=== PATIENT | female | born 1940 | race Caucasian/White ===

== ENCOUNTER → 2018-12-27 | Outpatient (REF) | payer MEDICARE, BC ==
[~2018-12-27] MED LIST: ADVAIR DISK1 INH; CLARITIN10 MG PO; LEVOTHYROXIN75 MCG PO; NAPROSYN500 MG PO; PROAIR HFA IN; SIMVASTATIN10 MG PO
[2018-12-27 09:54] LABS: ALBUMIN 4.3 g/dL (3.2-5.0); ALKALINE PHOSPHATASE 84 u/l (38-126); ANION GAP 16 (6-22 (CALC)); BILIRUBIN, TOTAL 0.7 mg/dL (0.0-1.4); BUN 15 mg/dL (8-23); BUN/CREATININE RATIO 18 (12-20 (CALC)); CALCULATED LDLCHOLESTEROL 126 mg/dL (62-129 (CALC)); CARBON DIOXIDE 27 mmol/l (22-30); CHLORIDE 98 mmol/l (95-108); CHOLESTEROL HDL RATIO 4.4 (<4.4 (CALC)); CREATININE 0.9 mg/dL (0.5-1.0); GFR 60 ML/MIN (>=60 (CALC)); GFR FOR AFR.AMER. > 60 ML/MIN (>=60 (CALC)); HDL CHOLESTEROL 47 mg/dL (>=40); SGOT/AST 15 u/l (9-36); SODIUM 137 mmol/l (137-146); TOTAL CHOLESTEROL 206 mg/dl (0-199); TOTAL PROTEIN 7.5 g/dL (6.3-8.2); TOTAL TRIGLYCERIDES 168 mg/dl (30-149); VLDL CHOLESTROL 34 mg/dl (0-48 (CALC))
[2018-12-27 10:21] LABS: TSH, 3RD GENERATION 0.97 uIU/mL (0.47 - 4.68)
== END | disposition home or self-care (01) ==
LOC: LAB 08:52
PROVIDERS: ATTEND Internal Medicine
DX: E03.4 Atrophy of thyroid (acquired) (principal); E78.49 Other hyperlipidemia

== ENCOUNTER 2021-09-03 13:57 | Observation (INO) | payer MEDICARE, BC ==
[~2021-09-03] VITALS: Ht 165.1 cm; Wt 73.0 kg
--- NOTE | 2021-09-03 14:00 | NUR ---
PATIENT STATES ASPHASIA AND THUNDER CLAP HEADACHE SUDDEN ONSET LASTING 20 MINUTES LKW 1300. NOTIFIED
--- NOTE | 2021-09-03 14:06 | NUR ---
PT TO CT VIA STRETCHER ACCOMPANIED BY THIS RN IN STABLE CONDITION.
--- NOTE | 2021-09-03 14:13 | NUR ---
CT WITHOUT CONTRAST PERFORMED, PT STABLE
[2021-09-03 14:28] LABS: GFR > 60 ML/MIN (>=60 (CALC)); GFR FOR AFR.AMER. > 60 ML/MIN (>=60 (CALC))
[2021-09-03 14:32] LABS: HEMATOCRIT 42.8 % (37.0-47.0); IMMATURE GRANULOCYTES 0.1 % (0.0-5.0); MEAN CELL VOLUME 98.8 fL CALC (80.0-100.0); MEAN CORPUSCULAR HGB 32.3 pG CALC (26.0-32.0); MEAN CORPUSCULAR HGB CONC 32.7 g/dL CAL (32.0-36.0); NEUT# 3.95 thou/uL (2.00-7.15); RED BLOOD COUNT 4.33 mill/uL (4.20-5.60); RED CELL DISTRI WIDTH 13.2 % (11.5-15.5)
--- NOTE | 2021-09-03 14:37 | NUR ---
PT AMBULATED TO RADIOLOGY BATHROOM, URINE SAMPLE COLLECTED AND TO LAB. PT STEADY ON FEET WITH STANDBY ASSIST.
[2021-09-03 14:41] LABS: INTERNATIONAL NORMALIZED RATIO 0.9 RATIO (0.7-1.3); PROTHROMBIN TIME 9.6 SECONDS (9.0-12.5)
[2021-09-03 14:43] LABS: ALBUMIN 4.4 g/dL (3.2-5.0); ALKALINE PHOSPHATASE 79 u/l (38-126); ANION GAP 15 (6-22 (CALC)); BILIRUBIN, TOTAL 0.8 mg/dL (0.0-1.4); BUN 10 mg/dL (8-23); BUN/CREATININE RATIO 18 (12-20 (CALC)); CARBON DIOXIDE 28 mmol/l (22-30); CHLORIDE 99 mmol/l (95-108); CREATININE 0.6 mg/dL (0.5-1.0); GFR > 60 ML/MIN (>=60 (CALC)); GFR FOR AFR.AMER. > 60 ML/MIN (>=60 (CALC)); SGOT/AST 23 u/l (9-36); SODIUM 137 mmol/l (137-146); TOTAL PROTEIN 8.3 g/dL (6.3-8.2)
[2021-09-03 14:43] LABS: URINE BILIRUBIN - DIPSTICK NEGATIVE (NEGATIVE); URINE BLOOD DIPSTICK TRACE-INTACT (NEGATIVE); URINE COLOR YELLOW; URINE GLUCOSE - DIPSTICK NEGATIVE (NEGATIVE); URINE KETONE NEGATIVE (NEGATIVE); URINE LEUK ESTERASE NEGATIVE (NEGATIVE); URINE PROTEIN - DIPSTICK NEGATIVE (NEG-TRACE); URINE UROBILINOGEN - DIPSTICK 0.2 E.U./dL (0.2)
[2021-09-03 14:49] LABS: URINE NITRITE - DIPSTICK NEGATIVE (Negative)
--- NOTE | 2021-09-03 14:53 | NUR ---
CT WITH CONTRAST PERFORMED
--- NOTE | 2021-09-03 15:05 | NUR ---
PT BACK FROM IMAGING VIA STRETCHER. PT STABLE.
--- NOTE | 2021-09-03 16:05 | NUR ---
PT UP TO BSC WITH STANDBY ASSIST. PT STABLE ON FEET.
--- NOTE | 2021-09-03 17:05 | NUR ---
PT RESTING IN BED WIT AT THE BEDSIDE. PT DENIES ANY PAIN. PT STABLE.
--- NOTE | 2021-09-03 18:03 | NUR ---
[facility] REPORT CALLED TO NAHOMI KENNEY
--- NOTE | 2021-09-03 18:10 | NUR ---
PT TAKEN TO MED/SURG VIA WHEELCHAIR
--- NOTE | 2021-09-03 18:15 | NUR ---
PT ARRIVED VIA WC IN STABLE CONDITION ACCOMPANIED BY ED NURSE. PT STABALIZED AND ORIENTED TO ROOM. ASSISTED PT TO BATHROOM; STEADY GAIT OBSERVED. ASSISTED BACK INTO BED. CALL LIGHT WITHIN REACH.
[2021-09-03 18:20] VITALS: BP 160/70
--- NOTE | 2021-09-03 21:53 | NUR ---
PT MEDICATED ORDERS PROVIDE. DENIES NEED FOR TYLENOL AT THIS TIME, SHE HAD PREVIOUSLY C/O HEADACHE. SHE REFUSED HER ADVAIR STATING THAT SHE TAKES 100/50 NOT THE 250/50. PHARMACY ADVISED THAT WE ONLY CARRY 250/50. PHYSICIAN WILL BE NOTIFIED. PT REPORTS THAT SHE WILL BE FINE WITHOUT IT FOR THE NIGHT/DENIES NEED. SHE REFUSED LOVONOX SHOT ALSO STATING CONCERNS THAT SHE WILL "PROBABLY HAVE A REACTION TO IT." I REASSURED HER THAT IF SHE HAD HESITATIONS OR THOUGHT SHE MAY BE ALLERGIC IN ANY WAY NOT TO TAKE IT. SHE STATED, "I HAVE NEVER TAKEN IT, HOW WOULD I KNOW IF I AM ALLERGIC." SHE DECIDED NOT TO TAKE IT.
--- NOTE | 2021-09-03 22:40 | NUR ---
PT CALLED STATING THAT SHE DISCUSSED THE LOVONOX SHOT WITH HER VIA PHONE CALL AND SHE DECIDED THAT SHE WANTED TO TAKE THE SHOT. I REASSURED HER THAT REACTIONS WERE UNCOMMON, BUT THAT IF SHE DID NOT FEEL COMFORTABLE TAKING SOMETHING THAT SHE HAS THE RIGHT TO REFUSE AND NOT FEEL PRESSURE IN ANY WAY. SHE VERBALIZED UNDERSTANDING AND ASKED TO TAKE IT. SHE ALSO WAS PROVIDED THE PACKAGING PREVIOUSLY SO SHE COULD READ THE INGREDIENTS, ETC. PT MEDICATED WITH LOVONOX SHOT AT THIS TIME, TOLERATED WELL.
--- NOTE | 2021-09-03 22:58 | NUR ---
PT CALLED ASKING IF SHE COULD NOW HAVE HER TYELENOL STATING THAT HER HEADACHE WAS BACK. SHE REPORTS MILD HEADACHE 'BEHIND LEFT EYE WHERE SHE HAD CATERACT REMOVED 4 WEEKS AGO." ADDITIONAL BLANKET PROVIDED, ROOM TURNED WARM, PER REQUEST. DENIES ANY OTHER NEEDS, CALL LIGHT IS W/IN REACH.
[2021-09-04] VITALS: BP 133/68
[2021-09-04 04:30] VITALS: BP 133/66
[2021-09-04 05:21] LABS: HEMATOCRIT 39.9 % (37.0-47.0); HEMOGLOBIN 13.2 g/dl (12.0-16.0); MEAN CELL VOLUME 97.8 fL CALC (80.0-100.0); MEAN CORPUSCULAR HGB 32.4 pG CALC (26.0-32.0); MEAN CORPUSCULAR HGB CONC 33.1 g/dL CAL (32.0-36.0); RED BLOOD COUNT 4.08 mill/uL (4.20-5.60); RED CELL DISTRI WIDTH 13.3 % (11.5-15.5)
[2021-09-04 05:35] LABS: ANION GAP 10 (6-22 (CALC)); BUN 9 mg/dL (8-23); BUN/CREATININE RATIO 14 (12-20 (CALC)); CALCULATED LDLCHOLESTEROL 121 mg/dL (62-129 (CALC)); CARBON DIOXIDE 31 mmol/l (22-30); CHLORIDE 101 mmol/l (95-108); CHOLESTEROL HDL RATIO 3.8 (<4.4 (CALC)); CREATININE 0.6 mg/dL (0.5-1.0); GFR > 60 ML/MIN (>=60 (CALC)); GFR FOR AFR.AMER. > 60 ML/MIN (>=60 (CALC)); HDL CHOLESTEROL 53 mg/dL (>=40); MAGNESIUM 2.2 mg/dL (1.6-2.3); POTASSIUM 4.5 mmol/l (3.5-5.1); SODIUM 137 mmol/l (137-146); TOTAL CHOLESTEROL 199 mg/dl (0-199); TOTAL TRIGLYCERIDES 126 mg/dl (30-149); VLDL CHOLESTROL 25 mg/dl (0-48 (CALC))
--- NOTE | 2021-09-04 06:14 | NUR ---
PT MEDICATED ORDERS PRVOIDE. NO S/O DISTRESS. POC AND DC DISCUSSED. PT DENIED ANY OTHER NEEDS AT THIS TIME. CALL LIGHT AT SIDE.
--- NOTE | 2021-09-04 07:15 | NUR ---
REPORT RECEIVED FROM IVAN.NAHOMI
--- NOTE | 2021-09-04 08:40 | NUR ---
PT RESTING IN SEMI FOWLERS POSITION,A&O X3;VS OBTAINED AND ASSESSMENT COMPLETED;PT DENIES ANY CURRENT PAIN OR DISCOMFORTS,PAIN SCALE AND REPORTING EDUCATED;RESPIRATIONS EVEN AND UNLABORED ON RA,CLEAR LUNG SOUNDS;ABDOMEN SOFT ON PALPATION AND ACTIVE IN ALL 4 QUADRANTS;STRONG PEDAL PULSES;SKIN INTACT;TELE MONITORING IN PLACE;#20G TO RAC FLUSHED AND PATENT,SITE APPEARS HEALTHY;PT EXPRESSES WISHES TO GO HOME TODAY, PT RE-ASSURED AND PT VERBALIZES UNDERSTANDING;PT DENIES ANY ADDITIONAL NEEDS AND IS ENCOURAGED TO CALL FOR ASSISTANCE IF NEEDED;FALL PRECAUTIONS IN PLACE WITH BED IN THE LOWEST POSITION AND CALL LIGHT IN REACH;WILL CONTINUE TO MONITOR
[2021-09-04 08:41] VITALS: BP 128/70
--- NOTE | 2021-09-04 10:18 | NUR ---
AT BEDSIDE DISCUSSING POC.
--- NOTE | 2021-09-04 10:30 | NUR ---
PT TRANSPORTED TO MRI IN STABLE CONDITION VIA WC ACCOMPANIED BY WRITTER.
--- NOTE | 2021-09-04 10:40 | NUR ---
PT TRANSPORTED BACK TO MED/SURG ROOM 279 IN STABLE CONDITION VIA WC ACCOMPANIED BY WRITTER.PT REFUSED MRI DUE TO ANXIETY. RADIOLOGY TO NOTIFY .
[2021-09-04 11:31] VITALS: BP 155/70
[2021-09-04] MEDS ORDERED: BAYER CHEWABLE81 MG PO (11:34)
--- NOTE | 2021-09-04 12:15 | NUR ---
PT AMBULATING AROUND THE ROOM;RESPIRATIONS EVEN AND UNLABORED ON RA;PT DENIES ANY CURRENT PAIN OR NEEDS;TELE MONITORING IN PLACE;IV SITE PATENT;PT EDUCATED ON PLANS TO D/C HOME THIS AFTERNOON AND VERBALIZES UNDERSTANDING;PT DENIES ANY ADDITIONAL NEEDS AND IS ENCOURAGED TO CALL FOR ASSISTANCE IF NEEDED;FALL PRECAUTIONS IN PLACE WITH BED IN THE LOWEST POSITION AND CALL LIGHT IN REACH;WILL CONTINUE TO MONITOR
--- NOTE | 2021-09-04 13:05 | NUR ---
ALL DISCHARGE INSTRUCTIONS PROVIDED AT THIS TIME;PT INSTRUCTED TO F/U WITH PCP, TAKE ASPIRIN DIRECTED AND RX SENT TO PHARMACY,ORDER FOR OPEN MRI PROVIDED;PT VERBALIZES UNDERSTANDING AND DENIES ANY ADDITIONAL QUESTIONS OR NEEDS;IV SITE REMOVED WITH CATHETER INTACT AND TELE MONITORING D/C;WC TO BE PROVIDED FOR D/C HOME;SPOUSE TO TRANSPORT PT HOME;WILL CONTINUE TO MONITOR
--- NOTE | 2021-09-04 13:18 | NUR ---
Discharge instructions given. Patient verbalizes understanding of same. Discharged in stable condition via Wheelchair to Home with family. All belongings sent with pt. PT TRANSPORTED TO [facility] IN STABLE CONDITION VIA ACCOMPANIED BY DARIANA GIBBONS.ALL BELONGINGS LEFT WITH PT.SPOUSE TO TRANSPORT PT HOME.
== END 2021-09-04 13:18 | disposition home or self-care (01) ==
LOC: ED 13:57 → ED-I 15:50 → ED 16:30 → MS2 16:30
PROVIDERS: ADMIT Hospitalist; ATTEND Hospitalist
DX: R41.0 Disorientation, unspecified (principal); I10 Essential (primary) hypertension; E78.5 Hyperlipidemia, unspecified; J45.909 Unspecified asthma, uncomplicated; E03.9 Hypothyroidism, unspecified; F40.240 Claustrophobia; Z20.822 Contact with and (suspected) exposure to COVID-19
CPT/HCPCS: G0378; J1650; Q9967

== ENCOUNTER 2022-10-17 17:32 | Emergency (ER) | payer MEDICARE, BC ==
[~2022-10-17] VITALS: Ht 165.1 cm; Wt 85.0 kg
[~2022-10-17 17:32] MED LIST changes: +BAYER CHEWABLE81 MG PO
[2022-10-17 18:15] LABS: BASO% 0.3 % (0-3); EOS% 0.3 % (0-8); HEMATOCRIT 39.1 % (37.0-47.0); HEMOGLOBIN 13.5 g/dl (12.0-16.0); IMMATURE GRANULOCYTES 0.1 % (0.0-5.0); LYMPH% 29.5 % (15-41); MEAN CORPUSCULAR HGB 32.5 pG CALC (26.0-32.0); MEAN CORPUSCULAR HGB CONC 34.5 g/dL CAL (32.0-36.0); MONO% 7.3 % (2-13); NEUT# 4.74 thou/uL (2.00-7.15); NEUT% 62.5 % (42-76); RED BLOOD COUNT 4.16 mill/uL (4.20-5.60); RED CELL DISTRI WIDTH 13.9 % (11.5-15.5)
[2022-10-17 18:27] LABS: ALBUMIN 4.4 g/dL (3.2-5.0); ALKALINE PHOSPHATASE 85 u/l (38-126); ANION GAP 14 (6-22 (CALC)); BILIRUBIN, TOTAL 0.5 mg/dL (0.0-1.4); BUN 7 mg/dL (8-23); BUN/CREATININE RATIO 14 (12-20 (CALC)); CARBON DIOXIDE 21 mmol/l (22-30); CHLORIDE 95 mmol/l (95-108); CREATININE 0.5 mg/dL (0.5-1.0); GFR FOR AFR.AMER. > 60 ML/MIN (>=60 (CALC)); GFR OTHER RACES > 60 ML/MIN (>=60 (CALC)); SGOT/AST 25 u/l (9-36); SODIUM 126 mmol/l (137-146); TOTAL PROTEIN 7.6 g/dL (6.3-8.2)
== END 2022-10-17 19:33 | disposition home or self-care (01) ==
LOC: ED 17:32
PROVIDERS: Family Medicine
DX: R19.7 Diarrhea, unspecified (principal); E87.1 Hypo-osmolality and hyponatremia; I10 Essential (primary) hypertension; E78.5 Hyperlipidemia, unspecified

== ENCOUNTER 2023-10-18 09:38 | Observation (INO) | payer MEDICARE, BC ==
[2023-10-18] VITALS (18 sets, daily range): BP systolic 102–178; BP diastolic 51–110
[~2023-10-18] VITALS: Ht 165.1 cm; Wt 65.0 kg
--- NOTE | 2023-10-18 10:33 | NUR ---
REPORT RECEIVED FROM NURSE. PT VERBALIZED NO NEEDS.
[2023-10-18 10:41] LABS: BASO% 0.1 % (0-3); HEMATOCRIT 38.5 % (37.0-47.0); IMMATURE GRANULOCYTES 0.1 % (0.0-5.0); LYMPH% 9.6 % (15-41); MEAN CELL VOLUME 92.3 fL CALC (80.0-100.0); MEAN CORPUSCULAR HGB 31.2 pG CALC (26.0-32.0); MEAN CORPUSCULAR HGB CONC 33.8 g/dL CAL (32.0-36.0); MONO% 3.2 % (2-13); NEUT# 7.97 thou/uL (2.00-7.15); RED BLOOD COUNT 4.17 mill/uL (4.20-5.60); RED CELL DISTRI WIDTH 13.6 % (11.5-15.5)
[2023-10-18 10:55] LABS: ALBUMIN 4.5 g/dL (3.2-5.0); ALKALINE PHOSPHATASE 112 u/l (38-126); ANION GAP 12 (6-22 (CALC)); BILIRUBIN, TOTAL 1.2 mg/dL (0.02-1.3); BUN 9 mg/dL (8-23); BUN/CREATININE RATIO 18 (12-20 (CALC)); CARBON DIOXIDE 22 mmol/l (22-30); CHLORIDE 98 mmol/l (95-108); CREATININE 0.5 mg/dL (0.5-1.0); GFR FOR AFR.AMER. > 60 ML/MIN (>=60 (CALC)); GFR OTHER RACES > 60 ML/MIN (>=60 (CALC)); POTASSIUM 3.9 mmol/l (3.5-5.1); SGOT/AST 23 u/l (9-36); SODIUM 128 mmol/l (137-146)
--- NOTE | 2023-10-18 11:28 | NUR ---
PT TO CT AT THIS TIME. PT VERBALIZED HER HEAD HURTS. PROVIDER NOTIFIED OF PT STATUS.
--- NOTE | 2023-10-18 12:14 | NUR ---
PT TO THE BEDSIDE COMMODE
--- NOTE | 2023-10-18 12:23 | NUR ---
PROVIDER AT BEDSIDE. PT ADVISED OF UPDATED PLAN OF CARE. PT VERBALZIED UNDERSTANDING. PT FAMILY IS AT BEDSIDE.
[2023-10-18 12:43] LABS: URINE BILIRUBIN - DIPSTICK Negative (NEGATIVE); URINE BLOOD DIPSTICK Small (NEGATIVE); URINE GLUCOSE - DIPSTICK Negative (NEGATIVE); URINE KETONE 40 mg/dL (NEGATIVE); URINE LEUK ESTERASE Negative (NEGATIVE); URINE NITRITE - DIPSTICK Negative (Negative); URINE PH 8.5 (4.5-8.0); URINE PROTEIN - DIPSTICK 100 mg/dL (NEG-TRACE); URINE UROBILINOGEN - DIPSTICK 0.2 E.U./dL (0.2)
[2023-10-18 12:48] LABS: URINE COLOR Yellow
[2023-10-18 13:01] LABS: INTERNATIONAL NORMALIZED RATIO 1.1 RATIO (0.7-1.3); PROTHROMBIN TIME 10.4 SECONDS (9.0-12.5)
[2023-10-18 13:01] LABS: URINE SQUAMOUS EPITHELIAL CELL FEW EPI/hpf (0-FEW); URINE WBC 0-2 WBC/hpf (0-5)
[2023-10-18 13:02] LABS: URINE BACTERIA RARE hpf
[2023-10-18 13:03] LABS: CALCULATED LDLCHOLESTEROL 128 mg/dL (62-129 (CALC)); CHOLESTEROL HDL RATIO 3.5 (<4.4 (CALC)); HDL CHOLESTEROL 58 mg/dL (39.0-59.0); TOTAL CHOLESTEROL 201 mg/dl (0-199); TOTAL TRIGLYCERIDES 73 mg/dl (0-149); VLDL CHOLESTROL 15 mg/dl (0-48 (CALC))
[2023-10-18 13:04] LABS: URINE HYALINE CAST FEW lpf (NONE-RARE)
--- NOTE | 2023-10-18 13:16 | NUR ---
PT ON TELEHEALTH CONSULTATION AT THIS TIME.
--- NOTE | 2023-10-18 14:30 | NUR ---
FAMILY AT BEDSIDE. PT IS ALERT. VSS.
--- NOTE | 2023-10-18 15:30 | NUR ---
PT IS ALERT. PT VERBALIZED NO NEEDS AT THIS TIME. WATER GIVEN TO PT.
--- NOTE | 2023-10-18 16:30 | NUR ---
PT OS ALERT. VSS. CALL LIGHT WITHIN REACH. FAMILY IS AT BEDSIDE
--- NOTE | 2023-10-18 18:38 | NUR ---
PATIENT ARRIVED TO UNIT VIA STRETCHER ACCOMPANIED BY ER NURSE. SHE AMBULATED FROM STRETCHER TO BED WITH STEADY GAIT. BEDSIDE NIH DONE WITH A SCORE OF ZERO. WILL CONTINUE TO MONITOR.
--- NOTE | 2023-10-18 18:53 | NUR ---
REPORT PROVIDED TO ICU NURSE. PT BELONGINGS PRIOR TO DEPARTURE.
--- NOTE | 2023-10-18 20:00 | NUR ---
PATIENT NOTED LYING IN BED WITH NO ACUTE DISTRESS NOTED. ASSESSMENT COMPLETED (SEE INTERVENTIONS). VSS. SHE DENIES ANY PAIN OR DISCOMFORT. BEDSIDE SWALLOW EVAL COMPLETED. PATIENT TOLERATED DRINKING WELL WITH NO COUGHING OR ANY ISSUES. PATIENT STATED SHE WILL NOT BE ABLE TO DO MRI DUE TO HER BEING CLAUSTROPHOBIC.
[2023-10-19] VITALS (16 sets, daily range): BP systolic 99–146; BP diastolic 42–82
--- NOTE | 2023-10-19 | NUR ---
NO CHANGES NOTED. WILL CONTINUE TO MONITOR.
--- NOTE | 2023-10-19 04:00 | NUR ---
PATIENT LYING IN BED RESTING COMFORTABLY WITH NO ACUTE DISTRESS NOTED. NO CHANGES NOTED IN NIH. VSS.
[2023-10-19 07:31] LABS: BASO% 0.6 % (0-3); EOS% 0.5 % (0-8); HEMATOCRIT 34.5 % (37.0-47.0); HEMOGLOBIN 11.8 g/dl (12.0-16.0); IMMATURE GRANULOCYTES 0.2 % (0.0-5.0); LYMPH% 47.8 % (15-41); MEAN CORPUSCULAR HGB 32.2 pG CALC (26.0-32.0); MEAN CORPUSCULAR HGB CONC 34.2 g/dL CAL (32.0-36.0); MONO% 8.8 % (2-13); NEUT# 2.72 thou/uL (2.00-7.15); NEUT% 42.1 % (42-76); RED BLOOD COUNT 3.67 mill/uL (4.20-5.60); RED CELL DISTRI WIDTH 13.7 % (11.5-15.5)
[2023-10-19 07:48] LABS: ALBUMIN 3.7 g/dL (3.2-5.0); ALKALINE PHOSPHATASE 91 u/l (38-126); ANION GAP 10 (6-22 (CALC)); BILIRUBIN, TOTAL 1.2 mg/dL (0.02-1.3); BUN 17 mg/dL (8-23); BUN/CREATININE RATIO 24 (12-20 (CALC)); CHLORIDE 94 mmol/l (95-108); CREATININE 0.7 mg/dL (0.5-1.0); GFR FOR AFR.AMER. > 60 ML/MIN (>=60 (CALC)); GFR OTHER RACES > 60 ML/MIN (>=60 (CALC)); SGOT/AST 18 u/l (9-36); SODIUM 127 mmol/l (137-146); TOTAL PROTEIN 6.6 g/dL (6.3-8.2)
--- NOTE | 2023-10-19 07:54 | NUR ---
BEDSIDE NIH PERFORMED, A 0 ON SCALE. PT IS STATING SHE FEELS FINE EXCEPT FOR HEADACHE IN FOREHEAD AND STRAIN IN EYES, SHE FEELS BECAUSE SHE NORMALLY WEARS GLASSES AND FORGOT TO BRING THEM WITH HER.
[2023-10-19 07:56] LABS: CARBON DIOXIDE 27 mmol/l (22-30)
--- NOTE | 2023-10-19 10:18 | NUR ---
pt taken to echo per w/c, alert/oriented x3, denies any complaint
--- NOTE | 2023-10-19 11:37 | NUR ---
pt continues to be symptom free of stroke symptoms. teleneurology consult obtained and he stated he thought it had more to do with migraines. nih is a 0
--- NOTE | 2023-10-19 13:18 | NUR ---
pt unable to tolerate mri/dr. jackson ordered ct scan of head and am waiting for that to be obtained. [facility] remains a 0
--- NOTE | 2023-10-19 14:04 | NUR ---
PT TRANSFERRED FROM ICU TO MS2 RM 272 VIA WHEELCHAIR. PT ABLE TO AMBULATE FROM WHEELCHAIR TO BED WITH STEADY GAIT. PT IS A/OX3, RM AIR, DENIES ANY PAIN. [facility] COMPLETED AT BEDSIDE WITH ICU NURSE MARÍA, SCORE OF 0. EDUCATED PT ON PLACE OF CARE AND MED SCHEDULE. CALL LIGHT WITHIN REACH AND SAFETY PRECAUTIONS IN PLACE.
--- NOTE | 2023-10-19 17:51 | NUR ---
PT IS SITTING UP HIGH FOWELRS IN BED, EATING DINNER. PT FAMILY MEMBERS AT BEDISDE. PT DENIES ANY PAIN AT THIS TIME. VSS. CALL LIGHT WITHIN REACH AND SAFETY PRECAUTIONS IN PLACE.
--- NOTE | 2023-10-19 19:45 | NUR ---
PT SITTING ON SIDE OF BED, NO SIGNS OF DISTRESS NOTED, RESP EVEN AND UNLABORED. PT ALERT AND ORIENTED X3, NO EDEMA, DISCUSSED POC, DISCUSSED PLANS FOR PT TO GO TO CT, PT AGREES, VERBALIZED UNDERSTANDING. ASSESSMENT REVIEW COMPLETED, CALL LIGHT IN REACH, POC ONGOING.
--- NOTE | 2023-10-19 20:00 | NUR ---
PT TAKEN DOWN TO RADIOLOGY FOR CT SCAN, VIA WHEELCHAIR IN STABLE CONDITION.
--- NOTE | 2023-10-19 20:20 | NUR ---
PT RETURNED FROM CT PT VERY UPSET STATES SHE DID NOT WANT THE MRI, EXPLAINED TO PT THAT SHE WENT DOWN TO CT NOT MRI. PT VISIBLY SHAKEN, ONCE PT UNDERSTOOD THAT SHE REFUSED THE CT AND NOT THE MRI, PT STATES SHE WILL THINK ABOUT GOING DOWN AGAIN FOR THE CT BUT NOT AT THIS TIME. CALL LIGHT IN REACH, POC CONTINUED
--- NOTE | 2023-10-19 22:00 | NUR ---
PT RETURNED FROM CT, NO SIGNS OF DISTRESS NOTED, RESP EVEN AND UNLABORED. PT APOLOGIZING FOR THE MISUNDERSTANDING. CALL LIGHT IN REACH, POC ONGOING.
--- NOTE | 2023-10-20 | NUR ---
PT RESTING IN BED, NO SIGNS OF DISTRESS NOTED, RESP EVEN AND UNLABORED. POC ONGOING. CALL LIGHT IN REACH
[2023-10-20 03:53] VITALS: BP 136/70
--- NOTE | 2023-10-20 04:05 | NUR ---
PT RESTING IN BED, NO SIGNS OF DISTRESS NOTED, RESP EVEN AND UNLABORED. PT DENIES ANY NEEDS OR COMPLAINTS AT THIS TIME, CALL LIGHT IN REACH,CONTINUE TO MONITOR.
[2023-10-20 06:58] LABS: BASO% 0.6 % (0-3); EOS% 1.2 % (0-8); HEMATOCRIT 36.6 % (37.0-47.0); HEMOGLOBIN 12.2 g/dl (12.0-16.0); IMMATURE GRANULOCYTES 0.2 % (0.0-5.0); LYMPH% 32.6 % (15-41); MEAN CELL VOLUME 94.6 fL CALC (80.0-100.0); MEAN CORPUSCULAR HGB 31.5 pG CALC (26.0-32.0); MEAN CORPUSCULAR HGB CONC 33.3 g/dL CAL (32.0-36.0); MONO% 9.5 % (2-13); NEUT# 3.61 thou/uL (2.00-7.15); NEUT% 55.9 % (42-76); RED BLOOD COUNT 3.87 mill/uL (4.20-5.60); RED CELL DISTRI WIDTH 13.8 % (11.5-15.5)
[2023-10-20 07:04] LABS: ALBUMIN 3.8 g/dL (3.2-5.0); ALKALINE PHOSPHATASE 92 u/l (38-126); ANION GAP 10 (6-22 (CALC)); BILIRUBIN, TOTAL 0.8 mg/dL (0.02-1.3); BUN 15 mg/dL (8-23); BUN/CREATININE RATIO 27 (12-20 (CALC)); CARBON DIOXIDE 27 mmol/l (22-30); CHLORIDE 102 mmol/l (95-108); CREATININE 0.5 mg/dL (0.5-1.0); GFR FOR AFR.AMER. > 60 ML/MIN (>=60 (CALC)); GFR OTHER RACES > 60 ML/MIN (>=60 (CALC)); MAGNESIUM 2.3 mg/dL (1.6-2.3); POTASSIUM 4.3 mmol/l (3.5-5.1); SGOT/AST 17 u/l (9-36); TOTAL PROTEIN 6.7 g/dL (6.3-8.2)
[2023-10-20 07:08] LABS: SODIUM 135 mmol/l (137-146)
--- NOTE | 2023-10-20 07:16 | NUR ---
PT IS AOX3, WITH NO COMPLAINTS OF PAIN AT THIS TIME, NIH=0
[2023-10-20 07:29] VITALS: BP 142/67
[2023-10-20 08:12] VITALS: BP 142/67
[2023-10-20 10:21] VITALS: BP 134/59
[2023-10-20 10:50] VITALS: BP 134/59
--- NOTE | 2023-10-20 11:22 | NUR ---
DR HE AT BEDSIDE DISCUSSING PLAN OF CARE WITH PT AND FAMILY.
[2023-10-20 11:58] VITALS: BP 152/69
[2023-10-20] MEDS ORDERED: BAYER CHEWABLE81 MG PO (13:27)
--- NOTE | 2023-10-20 14:44 | NUR ---
DISCHARGE INSTRUCTIONS REVIEWED WITH PT AND FAMILY, DC'D IV, DC'D TELE AND PLACED IT IN BOX AT NURSES STATION. .
--- NOTE | 2023-10-20 14:46 | NUR ---
PT LEFT THE FLOOR VIA WHEELCHAIR TRANSPORT WITH BELONGINGS IN HAND.
--- NOTE | 2023-10-23 11:56 | NUR ---
Discharge follow up call completed 10.23.23, Pt states she is doing well, just a little more tired than she normally is folloing a migraine. Pt has begun taking 81 mg of aspirin daily and has a follow up appointment with her PCP on . No questions or concerns verbalized by patient at this time. Pt requests her gratitude for care be conveyed to all staff and to adminstrators. No other needs voiced at this time.
== END 2023-10-20 14:47 | disposition home or self-care (01) ==
LOC: ED 09:38 → ED-I 15:22 → ED 16:38 → ICU 16:39 → MS2 10-19 13:34
PROVIDERS: Family Medicine; ADMIT Student in an Organized Health Care Education/Training Program; ATTEND Student in an Organized Health Care Education/Training Program
DX: G43.C0 Periodic headache syndromes in child or adult, not intractable (principal); E03.9 Hypothyroidism, unspecified; I10 Essential (primary) hypertension; E78.5 Hyperlipidemia, unspecified; J45.909 Unspecified asthma, uncomplicated; F40.240 Claustrophobia; M48.00 Spinal stenosis, site unspecified; Z79.02 Long term (current) use of antithrombotics/antiplatelets; Z20.822 Contact with and (suspected) exposure to COVID-19
CPT/HCPCS: J1650; Q9967